=== PATIENT | female | born 1995 | race African-American/Black ===

== ENCOUNTER 2020-10-10 15:59 | Emergency (ER) | payer OTHER ==
[~2020-10-10] VITALS: Ht 157.5 cm; Wt 70.0 kg
[2020-10-10 16:56] VITALS: BP 106/75
[2020-10-10] MEDS ORDERED: ACETAMINOPHEN WITH CODEINE 300/30MG TABLET PO ONE (17:00)
[2020-10-10] MEDS ORDERED: IBUP-2029 MT (17:26)
== END 2020-10-10 18:15 | disposition home or self-care (01) ==
LOC: ER 15:59
DX: S20.229A Contusion of unspecified back wall of thorax, initial encounter (principal); S40.011A Contusion of right shoulder, initial encounter; J45.909 Unspecified asthma, uncomplicated; V43.52XA Car driver injured in collision with other type car in traffic accident, initial encounter; Y93.89 Activity, other specified; Y92.488 Other paved roadways as the place of occurrence of the external cause
CPT/HCPCS: 71045; 73030; 81025; 99284; Z7610